=== PATIENT | female | born 2000 | race Two or more races ===

== ENCOUNTER → 2024-11-13 | Outpatient (CLI) | payer OTHER, SELFPAY ==
[2024-11-17 17:47] LABS: A. alternata (M6) IgE <0.10 kU/L; A. fumigatus (M3) Class 0; A. fumigatus (M3) IgE <0.10 kU/L; Alder (T2) Class 0; Alder (T2) IgE <0.10 kU/L; Bermuda Grass (G2) Class 0; Bermuda Grass (G2) IgE <0.10 kU/L; Birch (T3) Class 0; Birch (T3) IgE <0.10 kU/L; C. herbarum (M2) Class 0; C. herbarum (M2) IgE <0.10 kU/L; Cat Dander (e1) Class 0; Cat Dander (e1) IgE <0.10 kU/L; Cockroach (I6) IgE <0.10 kU/L; Common Pigweed (W14) IgE <0.10 kU/L; Common Ragweed (W1) Class 0; Common Ragweed (W1) IgE <0.10 kU/L; D. farinae (D2) Class 0; D. farinae (D2) IgE <0.10 kU/L; D. pteronyssinus (D1) Class 0; D. pteronyssinus (D1) IgE <0.10 kU/L; Dog Dander (E5) IgE <0.10 kU/L; Elm (T8) IgE <0.10 kU/L; Mountain Cedar (T6) Class 0; Mountain Cedar (T6) IgE <0.10 kU/L; Mouse Ur Prot (E72) IgE <0.10 kU/L; Mugwort (W6) Class 0; Mugwort (W6) IgE <0.10 kU/L; Oak White (T7) Class 0; Oak White (T7) IgE <0.10 kU/L; Olive Tree (T9) Class 0; Olive Tree (T9) IgE <0.10 kU/L; P. notatum (M1) Class 0; P. notatum (M1) IgE <0.10 kU/L; Russian Thistle (W11) Class 0; Russian Thistle (W11) IgE <0.10 kU/L; Sycamore (T11) IgE <0.10 kU/L; Timothy Grass (G6) IgE <0.10 kU/L; White Mulberry (T70) IgE <0.10 kU/L
[2024-11-19 07:04] LABS: A. alternata (M6) Class 0; Cockroach (I6) Class 0; Common Pigweed (W14) Class 0; Dog Dander (E5) Class 0; Elm (T8) Class 0; IgE, Total, Serum 21 kU/L (114 OR LESS); Mouse Ur Prot (E72) Class 0; Sycamore (T11) Class 0; Timothy Grass (G6) Class 0; White Mulberry (T70) Class 0
[2024-11-19 07:05] LABS: IgE, Serum* 23 kU/L (114 OR LESS)
== END | disposition home or self-care (01) ==
LOC: COPL 16:15
PROVIDERS: PCP Family Medicine; Referring Provider Physician Assistant Medical; Visit Provider Physician Assistant Medical
DX: J31.0 Chronic rhinitis (principal)
CPT/HCPCS: 36415; 82785; 86003